=== PATIENT | female | born 1945 | race Caucasian/White ===

== ENCOUNTER 2020-05-02 12:31 | Observation (INO) ==
[~2020-05-02 12:31] MED LIST: Buffered Lidocaine 1% SYRIN 1 ml INTRADERM ONE; Lactated Ringers 1000 ml BAG 1,000 ML IV SCH
[2020-05-02] MEDS ORDERED: Buffered Lidocaine 1% SYRIN 1 ml INTRADERM ONE (13:00)
[2020-05-02] MEDS ORDERED: ceFAZolin 2 GM PREMIX 2 GM/50 ML BAG ONE (13:00)
[2020-05-02] MEDS ORDERED: diPHENhydraMINE IV 50 MG/ML 1 ml VIAL (BENADRYL) IV PRN ×2 (13:49→16:42)
[2020-05-02] MEDS ORDERED: Ondansetron 4 mg VIAL 2 MG/ML 2 ml VIAL IV PRN ×2 (13:49→16:42)
[2020-05-02] MEDS ORDERED: Naloxone 0.4 mg VIAL 0.4 mg/ml 1 ml VIAL IV PRN (13:49)
[2020-05-02] MEDS ORDERED: Propofol 10 MG/ML 20 ML BTL ONE (14:11)
[2020-05-02] MEDS ORDERED: Lidocaine 2% PF 5 ML VIAL ONE (14:11)
[2020-05-02] MEDS ORDERED: Midazolam 2 mg/2 ml VIAL 1 mg/ml 2 ml VIAL (2 mg) ONE (14:11)
[2020-05-02] MEDS ORDERED: ROPIVACAINE 5 MG/ML 30 ML BTL (0.5%) ONE ×2 (14:51→14:57)
[2020-05-02] MEDS ORDERED: fentaNYL 100 mcg/2 ml 50 MCG/ML VIAL ONE (15:12)
[2020-05-02] MEDS ORDERED: Bupivacaine 0.5% SDV PF 30ML VIAL ONE (15:12)
[2020-05-02] MEDS ORDERED: Dexamethasone IV 4 MG/ML VIAL 1 ml VIAL ONE (15:37)
[2020-05-02] MEDS ORDERED: Ondansetron 4 mg VIAL 2 MG/ML 2 ml VIAL ONE (15:37)
[2020-05-02] MEDS ORDERED: oxyCODONE/Acetamin 5/325 mg TAB PO PRN (16:42)
[2020-05-02] MEDS ORDERED: Magnesium Hydroxide LIQ 30 ML UDC PO PRN (16:42)
[2020-05-02] MEDS ORDERED: Ondansetron ODT 4 mg TAB 4 MG TAB PO PRN (16:42)
[2020-05-02] MEDS ORDERED: diPHENhydraMINE 25 mg TAB PO PRN (16:42)
[2020-05-02] MEDS ORDERED: Lactulose 30 ml UDC PO PRN (16:42)
[2020-05-02] MEDS: HYDROmorphone 1 MG/1 ML SYRINGE IV PRN ×5 (17:45→18:10)
[2020-05-02] MEDS ORDERED: HYDROmorphone 1 MG/1 ML SYRINGE ONE (17:49)
[2020-05-02] MEDS: Magnesium Hydroxide LIQ 30 ML UDC PO SCH (20:39)
[2020-05-02] MEDS: Lactated Ringers 1000 ml BAG 1,000 ML IV SCH (20:39)
[2020-05-03] MEDS: oxyCODONE/Acetamin 5/325 mg TAB PO PRN ×4 (00:07→13:26)
[2020-05-03] MEDS: ceFAZolin 1 GM ADVAN 1 GM in NS 0.9% 50 ML 50 ML IVPB SCH ×3 (00:07→15:01)
[2020-05-03] MEDS: Lactated Ringers 1000 ml BAG 1,000 ML IV SCH (05:03)
[2020-05-03 07:06] LABS: Hematocrit 31 % (35-47); Hemoglobin 10.1 g/dL (12.0-16.0); Mean Platelet Volume 9.1 fL (7.4-10.4); Platelet Count 210 10^3/uL (150-450)
[2020-05-03 07:50] LABS: BUN/Creatinine Ratio 20.2 (8-20); EGFR African American 70.6 (>60); EGFR Non-African American 58.4 (>60)
[2020-05-03] MEDS: Magnesium Hydroxide LIQ 30 ML UDC PO SCH (08:47)
[2020-05-03] MEDS ORDERED: Vitamin THERAPEUTIC TAB PO SCH (09:00)
[2020-05-03 11:38] VITALS: BP 125/52
[2020-05-03] MEDS ORDERED: NS 0.9% 500 ml BAG 500 ML IV ONE (12:59)
[2020-05-06] MEDS ORDERED: Scopolamine PATCH Remove NOTE PATCH OFF SCH (15:00)
== END 2020-05-03 16:02 | disposition home or self-care (01) ==
LOC: OR 12:31 → SSU 16:42 → INTOOBSV 16:42
PROVIDERS: ADMIT Orthopaedic Surgery Adult Reconstructive Orthopaedic Surgery; ATTEND Orthopaedic Surgery Adult Reconstructive Orthopaedic Surgery

== ENCOUNTER 2020-05-12 10:26 | Observation (INO) ==
[2020-05-12 11:31] LABS: ABS Basophils 0.1 10^3/ul (0-0.2); ABS Eosinophils 0.2 10^3/ul (0-0.6); ABS Lymphocytes 1.9 10^3/ul (1.0-4.8); Eosinophil % 1.7 %; Hematocrit 31 % (35-47); Hemoglobin 10.1 g/dL (12.0-16.0); Lymphocyte % 16.4 %; Mean Corpuscular HGB Conc 33 g/dL (31-36); Mean Corpuscular Hemoglobin 27 pg (27-31); Mean Corpuscular Volume 82 fL (80-97); Mean Platelet Volume 7.8 fL (7.4-10.4); Platelet Count 559 10^3/uL (150-450); Red Blood Count 3.72 10^6 /uL (3.70-4.87); Red Cell Distribution Width 13 % (10-15); White Blood Count 11.5 10^3/uL (3.5-10.8)
[2020-05-12 11:59] LABS: Acetaminophen < 15 mcg/mL; Alcohol, S < 10 mg/dL (<10); Salicylate < 2.50 mg/dL (<30)
[2020-05-12 12:02] LABS: ALT 59 U/L (7-52); AST 98 U/L (13-39); Albumin 3.8 g/dL (3.2-5.2); Albumin/Globulin Ratio 1.1 (1-3); Alkaline Phosphatase 110 U/L (34-104); Anion Gap 10 mmol/L (2-11); BUN/Creatinine Ratio 16.8 (8-20); Blood Urea Nitrogen 17 mg/dL (6-24); CO2 Carbon Dioxide 25 mmol/L (22-32); Calcium 8.6 mg/dL (8.6-10.3); Chloride 99 mmol/L (101-111); EGFR Non-African American 53.7 (>60); Globulin 3.5 g/dL (2-4); Glucose 101 mg/dL (70-100); Potassium 3.4 mmol/L (3.5-5.0); Sodium 134 mmol/L (135-145); Total Protein 7.3 g/dL (6.4-8.9)
[2020-05-12 12:13] LABS: TSH (Thyroid Stimulating Horm) 1.95 mcIU/mL (0.34-5.60)
[2020-05-12 12:15] LABS: Urine Appearance Cloudy; Urine Bilirubin Negative (Negative); Urine Blood Negative (Negative); Urine Color Amber; Urine Glucose Negative (Negative); Urine Ketones Trace (Negative); Urine Nitrite Negative (Negative); Urine Protein 1+(30 mg/dL) (Negative); Urine Specific Gravity 1.028 (1.010-1.030); Urine Urobilinogen Positive (Negative)
[2020-05-12 12:18] LABS: Urine Bacteria 1+ (Absent); Urine Red Blood Cell 2+(6-10/hpf) (Absent); Urine Squamous Epithelial Cell Present (Absent); Urine White Blood Cell 1+(6-10/hpf) (Absent)
[2020-05-12] MEDS ORDERED: Iodixanol (CONTRAST) 320 MG/ML 100 ML SDV IV ONE (12:19)
[2020-05-12 12:49] LABS: Urine Benzodiazepine Screen None Detected (None Detect); Urine Opiates Screen None Detected (None Detect)
[2020-05-12] MEDS ORDERED: NS 0.9% IV SCH (14:15)
[2020-05-12] MEDS ORDERED: cefTRIAXone 1 gm/50 mL NS BAG 1 GM/50 ML BAG IV ONE (14:17)
[2020-05-12] MEDS ORDERED: Ondansetron 4 mg VIAL 2 MG/ML 2 ml VIAL IV PRN (15:02)
[2020-05-12] MEDS ORDERED: NS 0.9% 1000 ml BAG 1,000 ML IV SCH (15:15)
[2020-05-12] MEDS: Morphine 2 MG/ML SYRINGE IV PRN ×2 (17:42→23:46)
[2020-05-12] MEDS: KCL 20 MEQ/100 ML IVPREMIX 20 MEQ/100 ML BAG IV SCH (17:55)
[2020-05-13] MEDS: KCL 20 MEQ/100 ML IVPREMIX 20 MEQ/100 ML BAG IV SCH (01:35)
[2020-05-13 05:23] LABS: ABS Basophils 0.1 10^3/ul (0-0.2); ABS Eosinophils 0.4 10^3/ul (0-0.6); ABS Lymphocytes 2.3 10^3/ul (1.0-4.8); ABS Monocytes 0.9 10^3/ul (0-0.8); Eosinophil % 5.1 %; Hematocrit 26 % (35-47); Hemoglobin 8.4 g/dL (12.0-16.0); Mean Corpuscular HGB Conc 32 g/dL (31-36); Mean Corpuscular Hemoglobin 27 pg (27-31); Mean Corpuscular Volume 84 fL (80-97); Mean Platelet Volume 7.5 fL (7.4-10.4); Nucleated Red Blood Cells % 0.1; Platelet Count 435 10^3/uL (150-450); Red Cell Distribution Width 12 % (10-15); White Blood Count 8.7 10^3/uL (3.5-10.8)
[2020-05-13 05:35] LABS: Albumin 3.1 g/dL (3.2-5.2); Albumin/Globulin Ratio 1.1 (1-3); BUN/Creatinine Ratio 14.3 (8-20); EGFR African American 80.4 (>60); EGFR Non-African American 66.5 (>60); Globulin 2.7 g/dL (2-4); Magnesium 1.6 mg/dL (1.9-2.7); Potassium 3.9 mmol/L (3.5-5.0); Total Bilirubin 0.5 mg/dL (0.2-1.0); Total Protein 5.8 g/dL (6.4-8.9)
[2020-05-13] MEDS: Calcium Carb 1250 mg TAB (500 mg elemental calcium) PO SCH (08:01)
[2020-05-13] MEDS: Morphine 2 MG/ML SYRINGE IV PRN ×2 (08:02→22:52)
[2020-05-13] MEDS: Aspirin EC 81 mg TAB.EC (enteric coated) PO SCH (08:02)
[2020-05-13] MEDS ORDERED: Magnesium Sulfate 2 gm BAG 2 GM/50 ML BAG IVPB ONE (08:23)
[2020-05-13] MEDS ORDERED: Magnesium Sulf 4 GM/100 ML IV 4,000 MG/100 ML BAG IVPB ONE (08:30)
[2020-05-13] MEDS: COENZYME Q10 30 MG PO SCH (10:43)
[2020-05-13] MEDS ORDERED: cefTRIAXone 1 gm/50 mL NS BAG 1 GM/50 ML BAG IVPB SCH (14:00)
[2020-05-13 16:09] LABS: Hepatitis B Surface Antigen Nonreactive (Nonreactive)
[2020-05-13 16:26] LABS: Hepatitis C Antibody Negative (Negative)
[2020-05-14] MEDS: Morphine 2 MG/ML SYRINGE IV PRN ×3 (03:50→16:05)
[2020-05-14 05:58] LABS: ABS Basophils 0.1 10^3/ul (0-0.2); ABS Eosinophils 0.6 10^3/ul (0-0.6); ABS Lymphocytes 2.6 10^3/ul (1.0-4.8); ABS Monocytes 0.7 10^3/ul (0-0.8); Eosinophil % 7.4 %; Hematocrit 26 % (35-47); Hemoglobin 8.5 g/dL (12.0-16.0); Mean Corpuscular HGB Conc 34 g/dL (31-36); Mean Corpuscular Hemoglobin 28 pg (27-31); Mean Corpuscular Volume 84 fL (80-97); Mean Platelet Volume 7.5 fL (7.4-10.4); Nucleated Red Blood Cells % 0.1; Platelet Count 440 10^3/uL (150-450); Red Blood Count 3.04 10^6 /uL (3.70-4.87); Red Cell Distribution Width 12 % (10-15); White Blood Count 7.9 10^3/uL (3.5-10.8)
[2020-05-14 06:16] LABS: Albumin/Globulin Ratio 1.1 (1-3); BUN/Creatinine Ratio 13.6 (8-20); Calcium 8.1 mg/dL (8.6-10.3); EGFR African American 106.2 (>60); EGFR Non-African American 87.8 (>60); Globulin 2.7 g/dL (2-4); Indirect Bilirubin 0.3 mg/dL (0.3-1.0); Potassium 3.9 mmol/L (3.5-5.0); Total Bilirubin 0.4 mg/dL (0.2-1.0); Total Protein 5.7 g/dL (6.4-8.9)
[2020-05-14] MEDS: Calcium Carb 1250 mg TAB (500 mg elemental calcium) PO SCH (08:12)
[2020-05-14] MEDS: Aspirin EC 81 mg TAB.EC (enteric coated) PO SCH (08:13)
[2020-05-14] MEDS: COENZYME Q10 30 MG PO SCH (08:18)
[2020-05-14 13:49] LABS: Magnesium 1.9 mg/dL (1.9-2.7)
[2020-05-14] MEDS: HYDROcodone/ACETAMIN 5/325 mg TAB PO PRN (19:17)
[2020-05-15] MEDS: HYDROcodone/ACETAMIN 5/325 mg TAB PO PRN ×2 (00:15→09:23)
[2020-05-15] MEDS: Morphine 2 MG/ML SYRINGE IV PRN (03:41)
[2020-05-15 05:55] LABS: Corrected Retic Count 2.4 % (0.5-1.5); Hematocrit for Retic CNT 26 % (35-47); RBC Retic Count 3.14 10^6/uL (3.70-4.87)
[2020-05-15 06:17] LABS: Anion Gap 5 mmol/L (2-11); BUN/Creatinine Ratio 12.8 (8-20); Blood Urea Nitrogen 10 mg/dL (6-24); CO2 Carbon Dioxide 28 mmol/L (22-32); Calcium 8.1 mg/dL (8.6-10.3); Chloride 104 mmol/L (101-111); EGFR African American 87.6 (>60); EGFR Non-African American 72.4 (>60); Glucose 100 mg/dL (70-100); Potassium 4.4 mmol/L (3.5-5.0); Sodium 137 mmol/L (135-145)
[2020-05-15 06:18] LABS: % Iron Saturation 18 % (15-55); Iron 42 ug/dL (50-212); LDH 226 U/L (140-271); Total Iron Binding Capacity 239 mcg/dL (250-450); Transferrin 171 mg/dL (203-362)
[2020-05-15 06:37] LABS: Ferritin 298.1 ng/mL (11-307)
[2020-05-15] MEDS: Calcium Carb 1250 mg TAB (500 mg elemental calcium) PO SCH (09:23)
[2020-05-15] MEDS: Aspirin EC 81 mg TAB.EC (enteric coated) PO SCH (09:23)
[2020-05-15] MEDS: COENZYME Q10 30 MG PO SCH (09:31)
[2020-05-15 12:51] VITALS: BP 133/64
== END 2020-05-15 14:35 | disposition home or self-care (01) ==
LOC: ED 10:26 → MED 10:26
PROVIDERS: ADMIT Internal Medicine; ATTEND Internal Medicine